=== PATIENT | male | born 1940 | race Caucasian/White ===

== ENCOUNTER → 2017-10-19 | Outpatient (CLI) | payer MEDICARE | LOC: LAB 08:16 → LAB SHORT 08:16 | DX: L30.9 Dermatitis, unspecified (principal) | CPT/HCPCS: 88312 ==

== ENCOUNTER 2018-11-12 08:44 | Day surgery (SDC) | payer MEDICARE ==
[~2018-11-12] VITALS: Ht 180.3 cm; Wt 92.0 kg
[~2018-11-12 08:44] MED LIST: AMLO5 PO; CARV6.25 PO; CEPH500 PO; FAMO20 PO; TAMS.4ER PO
--- NOTE | 2018-11-12 12:16 | NUR ---
DR BURR TO ROOM DISCUSSING PLAN OF CARE. VSS. NADN. CALL LIGHT WITHIN REACH. FAMILY AT BEDSIDE
--- NOTE | 2018-11-12 13:13 | NUR ---
PT AND S/O VERBALIZES UNDERSTANDING WRITTEN AND VERBAL ORDERS. PT IV DC'D. CATH INTACT. PRESSURE DSG APPLIED. L KIDNEY SITE REMAINS STABLE/ NO BLEEDING OR HEMATOMA NOTED. VSS. PT AMBULATES TO AND FROM RESTROOM WITHOUT DIFF. PT DC TO HOME VIA S/O BY WC.
== END 2018-11-12 13:15 | disposition home or self-care (01) ==
LOC: MHTC 08:44
DX: N28.1 Cyst of kidney, acquired (principal); I10 Essential (primary) hypertension; Z79.899 Other long term (current) drug therapy
CPT/HCPCS: 99152; 99153; J2250; J3010; J7030; J7040

== ENCOUNTER 2019-03-27 05:59 | Day surgery (SDC) | payer MEDICARE ==
[~2019-03-27] VITALS: Ht 182.9 cm; Wt 92.0 kg
--- NOTE | 2019-03-27 06:34 | NUR ---
PT ADMITTED TO CT. AGREES WITH PLANNED SURGERY. LUNG SOUNDS CLEAR.
--- NOTE | 2019-03-27 06:41 | NUR ---
nozin to nares bilaterally.
[2019-03-27] MEDS ORDERED: Bactrim Ds Tab1 EACH PO (10:56)
--- NOTE | 2019-03-27 14:06 | NUR ---
PT ARRIVED TO THE ROOM AT APPROXIMATELY 1130. PT ALERT AND ORIENTED UPON ARRIVAL TO THE ROOM. PT COMPLAINED OF A SORE THROAT. VSS. WILL MONITOR UNTIL REPORT TO ONCOMING RN.
--- NOTE | 2019-03-27 14:10 | NUR ---
SORE THROAT PT REPORTED SORE THROAT WHICH PROGRESSED TO DIFFICULTY SWALLOWING. PT THEN REPORTED HE FELT LIKE HE WAS UNABLE TO CATCH IS BREATH. PT PLACED ON 2L O2 VIA NC. VSS. PT REPORTED FEELING ANXIOUS. AFTER TALKING TO PT HE REPORTED SHORTNESS OF BREATH RESOLVED BUT HE CONTINUED TO HAVE DIFFICULTY SWALLOWING AND A SORE THROAT. DR. REDD NOTIFIED, LOZENGES GIVEN. WILL CONTINUE TO MONITOR.
--- NOTE | 2019-03-27 17:45 | NUR ---
SHIFT SUMMARY PAIN HAS BEEN MANAGED WITH PO PAIN MEDICATION. HE IS A 1 ASSIST WHEN OOB AND HAS WORKED WITH THERAPY THIS SHIFT. VSS. WILL MONITOR UNTIL REPORT TO ONCOMING RN.
[2019-03-28 05:02] LABS: BASOPHILS ABSOLUTE AUTO 0.01 K/mm3 (0.00-0.23); BASOPHILS PERCENT AUTO 0 % (0-2); EOSINOPHILS PERCENT AUTO 0 % (0-6); Hematocrit 34.7 % (37.0-53.0); Hemoglobin 11.7 g/dL (13.5-17.5); IMMATURE GRAN ABSOLUTE AUTO 0.05 K/mm3 (0.00-0.10); IMMATURE GRAN PERCENT AUTO 0 % (0-1); LYMPHOCYTES PERCENT AUTO 9 % (21-46); MONOCYTES ABSOLUTE AUTO 1.37 K/mm3 (0.16-1.47); MONOCYTES PERCENT AUTO 11 % (4-13); Mean Corpuscular HGB 31.8 pg (26.0-34.0); Mean Corpuscular HGB Conc 33.7 g/dL (31.5-36.5); Mean Corpuscular Volume 94 fL (80-100); Mean Platelet Volume 11.2 fL (9.1-12.4); NEUTROPHILS ABSOLUTE AUTO 10.18 K/mm3 (1.96-9.15); NEUTROPHILS PERCENT AUTO 80 % (41-73); Platelet Count 157 K/mm3 (150-400); RDW Coefficient Variation 12.2 % (11.7-14.2); RDW Standard Deviation 42.4 fL (35.1-46.3); Red Blood Cell Count 3.68 M/mm3 (4.30-5.90); White Blood Cell Count 12.71 K/mm3 (4.00-11.30)
[2019-03-28 06:13] LABS: Anion Gap 7 mmol/L (6-16); Blood Urea Nitrogen 13 mg/dL (8-24); Bun/Creatinine Ratio 16.1 (12.0-20.0); CO2, Blood 27 mmol/L (21-32); Calcium, Blood 8.1 mg/dL (8.5-10.1); Chloride, Blood 103 mmol/L (98-108); Creatinine, Blood 0.81 mg/dL (0.60-1.20); Glomerular Filtration Rate >60 (60-); Glucose, Blood 120 mg/dL (70-99); Magnesium, Blood 2.3 mg/dL (1.6-2.4); Potassium, Blood 4.3 mmol/L (3.5-5.5); Sodium, Blood 137 mmol/L (136-145)
--- NOTE | 2019-03-28 06:15 | NUR ---
SHIFT SUMMARY SITTING UP IN CHAIR AT BEDSIDE AFTER AMBULATING TO BATHROOM TO USE COMMODE TO URINATE. RESTED WELL, CALLED APPROPRIATELY WITH NEEDS. PAIN MAMANGED WITH SCHEDULED TORADOL/TYLENOL. AND OXYCODONE FOR BREAK THROUGH PAIN. POLAR BANDAR REAMINS IN PLACE. ABLE TO AMBULATE WITH STANDBY ASSIST, GAIT BELT, AND FWW. DENIES FURTHER NEEDS AT THIS TIME. SAFETY MEASURES IN [place]. WILL GIVE HAND OFF TO ONCOMING SHIFT USING SBAR.
[2019-03-28] MEDS ORDERED: ASPI325 PO (10:26)
--- NOTE | 2019-03-28 10:37 | NUR ---
03/28/19 1037 Kirit Salazar CORECTION OF IMPLANTS
[2019-03-28] MEDS ORDERED: ROXICODONE5 MG PO (10:47)
[2019-03-28] MEDS ORDERED: PROM25 PO (10:50)
--- NOTE | 2019-03-28 12:30 | NUR ---
DISCHARGE TO HOME WITH SPOUSE, VERBALIZED & DEMONSTRATED UNDERSTANDING OF FURTHER CARE.
--- NOTE | 2019-03-28 12:58 | NUR ---
DISCHARGE PT PROVIDED WITH WRITTEN AND VERBAL DISCHARGE INSTRUCTIONS BY [employer] [employer]OEMAKER.
== END 2019-03-28 12:30 | disposition home or self-care (01) ==
LOC: ORSCMMR 05:59 → ORD 07:30 → SURS 11:24 → ORSCMMR 03-28 12:30
PROVIDERS: Orthopaedic Surgery
PROC: 0SRD0J9 Replacement of Left Knee Joint with Synthetic Substitute, Cemented, Open Approach (ICD-10-PCS; principal; 2019-03-27 07:30)
PROC: 8E0YXBZ Computer Assisted Procedure of Lower Extremity (ICD-10-PCS; principal; 2019-03-27 07:30)
DX: M17.12 Unilateral primary osteoarthritis, left knee (principal); I10 Essential (primary) hypertension; K21.9 Gastro-esophageal reflux disease without esophagitis; Z79.899 Other long term (current) drug therapy; Z79.82 Long term (current) use of aspirin
CPT/HCPCS: 36415; 73560-LT; 80048; 83735; 85025; 88300; 97110; 97116; 97162; 97530; C1713; C1776; J0171; J0690; J0735; J1100; J1885; J2405; J2704; J2795; J3010; J7120

== ENCOUNTER → 2023-04-24 | Outpatient (CLI) | payer MEDICARE, OTHER ==
[~2023-04-24] MED LIST changes: +ASPI325 PO; +Bactrim Ds Tab1 EACH PO; +PROM25 PO; +ROXICODONE5 MG PO
== END ==
LOC: LAB SHORT 07:00 → LAB 07:00 → LAB FUT 04-20 08:05
DX: R13.10 Dysphagia, unspecified (principal); B96.81 Helicobacter pylori [H. pylori] as the cause of diseases classified elsewhere
CPT/HCPCS: 87338